=== PATIENT | female | born 1995 | race Caucasian/White ===

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

== ENCOUNTER 2017-03-17 22:18 | Emergency (ER) | payer MEDICAID ==
[~2017-03-17] VITALS: Ht 160 cm; Wt 74.3 kg
[~2017-03-17 22:18] MED LIST changes: -HYDR-3533 PO; +IBUP-232 PO; -IBUP600T26 PO; +OXYC1TAB63 PO; -PRED5PAK PO; +SENN1TAB PO; -ZITH250T PO
[2017-03-17 22:23] VITALS: BP 130/85; PULSE 85; RESP 16; TEMP 98.3; O2SAT 97
--- NOTE | 2017-03-17 23:10 | PD ---
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 Patient status post for delivery of twin at 24 weeks' gestational age on November 24, 2016. Patient had premature rupture of membranes and labor at that time. Patient states that she has persistent vaginal bleeding with pelvic cramping since then. Patient denies any headache. Patient denies any chest pain or shortness of breath. Patient states the abdominal pelvic cramping localized to lower abdomen pelvic area. Patient denies any pain radiation. Patient denies any dysuria or frequency. Patient denies any back pain. Patient denies any fever chills. PFSH Past Medical History Diminished Hearing: No Respiratory: Yes (URI) Immunizations Current: Yes Tetanus Vaccination: < 5 Years ?: Not Past Surgical History Section: Yes Other Surgery: Yes (RIGHT LOWER LEG HAD LACERATION REPAIR) Social History Alcohol Use: No Tobacco Use: No Substance Use: No Allergies-Medications (Allergen,Severity, Reaction): Coded Allergies: Sulfa (Verified Allergy, Mild, RASH, 11/24/16) Reported Meds & Prescriptions Reported Meds & Active Scripts Active Senna Plus 8.6-50 mg (Sennosides-Docusate Sodium) 1 Tab Tab 2 Tab PO Q12H Oxycodone-Acetaminophen 5-325 mg Tab 1 Tab PO Q4H PRN Ibuprofen 600 Mg Tab 600 Mg PO Q6H PRN Review of Systems General / Constitutional: No: Fever Eyes: No: Visual changes HENT: No: Headaches Cardiovascular: No: Chest Pain or Discomfort Respiratory: No: Shortness of Breath Gastrointestinal: Positive: Abdominal Pain Genitourinary: Positive: Pelvic Pain, Vaginal Bleeding, No: Dysuria Musculoskeletal: No: Pain Skin: No Rash Neurologic: No: Weakness Psychiatric: No: Depression Endocrine: No: Polydipsia Hematologic/Lymphatic: No: Easy Bruising Physical Exam Narrative GENERAL: Well-nourished, well-developed patient. SKIN: Focused skin assessment warm/dry. HEAD: Normocephalic. EYES: No scleral icterus. No injection or drainage. NECK: Supple, trachea midline. No JVD or lymphadenopathy. CARDIOVASCULAR: Regular rate and rhythm without murmurs, gallops, or rubs. RESPIRATORY: Breath sounds equal bilaterally. No accessory muscle use. GASTROINTESTINAL: Abdomen soft, non-tender, nondistended. MUSCULOSKELETAL: No cyanosis, or edema. BACK: Nontender without obvious deformity. No CVA tenderness. 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 No cervical motion tenderness. Uterus is nonenlarged with moderate tenderness and palpation. No adnexal masses or tenderness. Data Data Last Documented VS Vital Signs Date Time Temp Pulse Resp B/P Pulse Ox O2 Delivery O2 Flow Rate FiO2 03/17/17 23:19 Room Air 03/17/17 22:23 98.3 85 16 130/85 97 Orders Complete Blood Count With Diff (03/17/17 22:42) Basic Metabolic Panel (Bmp) (03/17/17 22:42) Iv Access Insert/Monitor (03/17/17 22:42) Ecg Monitoring (03/17/17 22:42) Oximetry (03/17/17 22:42) Ed Urine Pregnancytest Poc (03/17/17 22:42) Labs Laboratory Tests Test 03/17/17 23:15 White Blood Count 6.2 TH/MM3 Red Blood Count 4.73 MIL/MM3 Hemoglobin 13.5 GM/DL Hematocrit 39.2 % Mean Corpuscular Volume 82.9 FL Mean Corpuscular Hemoglobin 28.6 PG Mean Corpuscular Hemoglobin 34.5 % Concent Red Cell Distribution Width 13.7 % Platelet Count 171 TH/MM3 Mean Platelet Volume 9.1 FL Neutrophils (%) (Auto) 49.9 % Lymphocytes (%) (Auto) 40.2 % Monocytes (%) (Auto) 6.2 % Eosinophils (%) (Auto) 2.2 % Basophils (%) (Auto) 1.5 % Neutrophils # (Auto) 3.1 TH/MM3 Lymphocytes # (Auto) 2.5 TH/MM3 Monocytes # (Auto) 0.4 TH/MM3 Eosinophils # (Auto) 0.1 TH/MM3 Basophils # (Auto) 0.1 TH/MM3 CBC Comment DIFF FINAL Differential Comment Sodium Level 141 MEQ/L Potassium Level 3.5 MEQ/L Chloride Level 107 MEQ/L Carbon Dioxide Level 27.1 MEQ/L Anion Gap 7 MEQ/L Blood Urea Nitrogen 17 MG/DL Creatinine 0.85 MG/DL Estimat Glomerular Filtration 85 ML/MIN Rate Random Glucose 94 MG/DL Calcium Level 9.0 MG/DL [facility] Medical Decision Making Medical Screen Exam Complete: Yes Emergency Medical Condition: Yes Interpretation(s) 23:35 PM. CBC within normal limit. Urine test negative. Differential Diagnosis Differential diagnosis including menorrhagia, dysmenorrhea, cervical injury, retained products of conception, threatened AB, incomplete AB, completed AB, ectopic . Narrative Course 22-year-old female with pelvic pain and vaginal bleeding since delivery in November 2016. Diagnosis Primary Impression: Menorrhagia Qualified Code: N92.1 - Menorrhagia with irregular cycle Patient Instructions: General Instructions Additional Instructions: Take medications as directed. Follow-up with personal physician, care navigator. Return if worse. Med/Other Pt SpecificInfo: Prescription(s) given Scripts Ibuprofen 600 Mg [id number] Mg PO TID #60 TAB Ref 0 Prov:Rafi Jonas MD 03/17/17 Hydrocodone-Acetaminophen ([place])5-325 mg Tab1 Tab PO Q6H PRN (PAIN) #30 TAB Prov:Rafi Jonas MD 03/17/17 Disposition: 01 DISCHARGE HOME Condition: Stable Rafi Jonas MD Mar 17, 2017 23:10
[2017-03-17 23:15] VITALS: BP 128/76; PULSE 77; RESP 17; O2SAT 99
[2017-03-17 23:24] LABS: AUTOMATED NEUTROPHIL # 3.1 TH/MM3 (1.8-7.7); BASOPHIL # 0.1 TH/MM3 (0-0.2); BASOPHIL % 1.5 % (0.0-2.0); EOSINOPHIL # 0.1 TH/MM3 (0-0.4); EOSINOPHIL % 2.2 % (0.0-4.0); HEMATOCRIT 39.2 % (35.0-46.0); HEMO FLAGS DIFF FINAL; LYMPH % 40.2 % (9.0-44.0); LYMPHOCYTE # 2.5 TH/MM3 (1.0-4.8); MEAN CELL VOLUME 82.9 FL (80.0-100.0); MEAN CORPUSCULAR HEMOGLOBIN 28.6 PG (27.0-34.0); MEAN CORPUSCULAR HGB CONC 34.5 % (32.0-36.0); MONO % 6.2 % (0.0-8.0); NEUT % 49.9 % (16.0-70.0); PLATELET COUNT 171 TH/MM3 (150-450); RED BLOOD COUNT 4.73 MIL/MM3 (4.00-5.30); RED CELL DISTRIBUTION WIDTH 13.7 % (11.6-17.2); WHITE BLOOD COUNT 6.2 TH/MM3 (4.0-11.0)
[2017-03-17 23:32] LABS: POTASSIUM 3.5 MEQ/L (3.5-5.1)
[2017-03-17 23:35] LABS: BICARBONATE 27.1 MEQ/L (21.0-32.0)
[2017-03-17] MEDS ORDERED: NORC5TAB PO (23:55)
[2017-03-17] MEDS ORDERED: IBUP-232 PO (23:55)
[2017-03-18] MEDS ORDERED: KETOROLAC TROMETHAMINE 30 MG/ML (IVP) VIAL IV PUSH ONE
[2017-03-18] MEDS ORDERED: DEPO150I IM (00:05)
[2017-03-18 00:20] VITALS: BP 134/70
== END 2017-03-18 00:30 | disposition home or self-care (01) ==
LOC: PHED 22:18
DX: N92.1 Excessive and frequent menstruation with irregular cycle (principal)
CPT/HCPCS: 80048; 84703; 85025; 96374; 99284; J1885